=== PATIENT | female | born 1990 | race Two or more races ===

== ENCOUNTER 2022-08-10 16:02 | Emergency (ER) | payer SELFPAY ==
[~2022-08-10] VITALS: Ht 172.7 cm; Wt 72.7 kg
[2022-08-10 16:54] VITALS: BP 131/81
[2022-08-10] MEDS ORDERED: DexAMETHasone SOD PHOS 10MG/1ML VIAL INJ IM ONE (17:00)
[2022-08-10] MEDS ORDERED: KETOROLAC TROMETH 60MG/2ML VIAL IM ONE (17:00)
[2022-08-10] MEDS ORDERED: LIDO2SOL23 MT (21:08)
[2022-08-10] MEDS ORDERED: LORA10CA7 PO (21:08)
[2022-08-10] MEDS ORDERED: IBUP800T26 PO (21:08)
[2022-08-10] MEDS ORDERED: ACET-1158 PO (21:08)
== END 2022-08-10 21:41 | disposition home or self-care (01) ==
LOC: ER 16:02 → EDBD 16:02 → ER 21:41
DX: J02.8 Acute pharyngitis due to other specified organisms (principal); B97.89 Other viral agents as the cause of diseases classified elsewhere
CPT/HCPCS: 87070; 87880; 96372; 99284; J1100; J1885